=== PATIENT | male | born 1995 | race American Indian/Alaskan Native ===

== ENCOUNTER 2022-02-11 01:47 | Emergency (ER) | payer SELFPAY ==
[2022-02-11 05:48] VITALS: BP 146/75
== END 2022-02-11 10:00 | disposition left against medical advice (07) ==
LOC: ED 01:47
DX: S09.90XA Unspecified injury of head, initial encounter (principal); Z53.21 Procedure and treatment not carried out due to patient leaving prior to being seen by health care provider; X58.XXXA Exposure to other specified factors, initial encounter; Y93.89 Activity, other specified; Y92.89 Other specified places as the place of occurrence of the external cause; Y99.8 Other external cause status